=== PATIENT | female | born 1965 | race Two or more races ===

== ENCOUNTER 2023-08-27 12:35 | Inpatient (IN) | payer OTHER ==
[2023-08-27 13:28] VITALS: BMI 30.5
[2023-08-27] MEDS ORDERED: guaiFENesin 600 MG TABLET.ER (FP) PO PRN (20:33)
[2023-08-27] MEDS ORDERED: BENZONATATE 200 MG CAPSULE PO PRN (20:33)
[2023-08-27] MEDS ORDERED: COLLOIDAL OATMEAL 1 BAR EACH TP PRN (20:33)
[2023-08-27] MEDS ORDERED: LOPERAMIDE HCL 2 MG CAPSULE PO PRN (20:33)
[2023-08-27] MEDS ORDERED: BENZOCAINE/MENTHOL (CHLORASEPTIC ) LOZENGE MM PRN (20:33)
[2023-08-27] MEDS ORDERED: MAG HYDROX/AL HYDROX/SIMETH 30 ML UNIT-DOSE CUP PO PRN (20:33)
[2023-08-27] MEDS ORDERED: IBUPROFEN 400 MG TABLET (FP) PO PRN (20:33)
[2023-08-27] MEDS ORDERED: ACETAMINOPHEN 325 MG TABLET (FP) PO PRN (20:33)
[2023-08-27] MEDS ORDERED: P-EPHED 60MG/TRIPROLIDI 2.5MG TABLET PO PRN (20:33)
[2023-08-27] MEDS ORDERED: POLYETHYLENE GLYCOL (HEALTHYLAX) 3350 17 GM PACKET PO PRN (20:33)
[2023-08-27] MEDS ORDERED: IBUPROFEN 600 MG TABLET (FP) PO PRN (20:33)
[2023-08-27] MEDS ORDERED: NICOTINE POLACRILEX 2 MG GUM BUC PRN (20:33)
[2023-08-27] MEDS ORDERED: MELATONIN 5 MG TABLETS PO SCH (22:00)
[2023-08-27] MEDS: THIAMINE HCL 100 MG TABLET (FP) PO SCH (23:42)
[2023-08-27] MEDS: MELATONIN 5 MG TABLETS PO SCH (23:45)
[2023-08-28] MEDS: PRENATAL VITAMINS W/ FOLIC ACID TABLET (FP) PO SCH (09:46)
[2023-08-28 10:23] LABS: HEMOGLOBIN 12.1 GM/dL (10.7-15.3); MCH 24.4 pg (25.7-33.7); MCHC 31.8 g/dl (32.0-36.0); MEAN CELL VOLUME 76.5 fl (80-96); PLATELET COUNT 221 10^3/uL (134-434); RBC 4.97 M/mm3 (3.60-5.2); RDW 14.8 % (11.6-15.6); WHITE BLOOD COUNT 5.5 K/mm3 (4.0-10.0)
[2023-08-28 10:29] LABS: POTASSIUM 4.3 mmol/L (3.5-5.1)
[2023-08-28 10:37] LABS: BLOOD UREA NITROGEN 15.8 mg/dL (7-18); CALCIUM 8.7 mg/dL (8.5-10.1)
[2023-08-28 10:38] LABS: ALBUMIN 3.2 g/dl (3.4-5.0)
[2023-08-28 10:40] LABS: CREATININE 0.8 mg/dL (0.55-1.3)
[2023-08-28 10:41] LABS: BILIRUBIN,TOTAL 0.6 mg/dL (0.2-1)
[2023-08-28 10:42] LABS: TOT PROT 6.1 g/dl (6.4-8.2)
[2023-08-28] MEDS: BUPRENORPHINE/NALOXONE 8 MG/2 MG FILM PACKET SL SCH ×2 (13:04→21:17)
[2023-08-28] MEDS ORDERED: PATIENT'S OWN MEDICATION (NON-FORMULARY) (Buprenorphine/Naloxone 1 EACH Film) SL SCH (14:00)
[2023-08-28] MEDS ORDERED: ESCITALOPRAM OXALATE 20 MG TABLET PO ONE (14:09)
[2023-08-28] MEDS ORDERED: VENLAFAXINE HCL 75 MG E.R. CAPSULES PO ONE (14:09)
[2023-08-28] MEDS ORDERED: clonazePAM 0.5 MG ODT TABLETS SL ONE (14:21)
[2023-08-28] MEDS: GABAPENTIN 400 MG CAPSULE PO SCH ×2 (15:01→21:17)
[2023-08-28] MEDS: THIAMINE HCL 100 MG TABLET (FP) PO SCH (21:17)
[2023-08-28] MEDS: ATORVASTATIN CA 40 MG TABLET (FP) PO SCH (21:17)
[2023-08-28] MEDS: clonazePAM 0.5 MG ODT TABLETS SL SCH (21:17)
[2023-08-28] MEDS: MELATONIN 5 MG TABLETS PO SCH (21:20)
[2023-08-28] MEDS ORDERED: SENNOSIDES 8.6MG TABLET (FP) PO SCH (22:00)
[2023-08-28] MEDS: SENNOSIDES 8.6MG TABLET (FP) PO SCH (22:19)
[2023-08-29] MEDS: BUPRENORPHINE/NALOXONE 8 MG/2 MG FILM PACKET SL SCH ×3 (06:45→21:13)
[2023-08-29] MEDS: GABAPENTIN 400 MG CAPSULE PO SCH ×3 (06:45→21:06)
[2023-08-29 09:06] LABS: EPI CELLS 35 /uL (0-25.1); HYALINE CASTS 1 /uL (0-3.1); PH,URINE 6.5 (5.0-8.0); URINE APPEARANCE CLEAR; URINE BACTERIA 1552 /uL (0-1359); URINE BILIRUBIN NEGATIVE (NEGATIVE); URINE COLOR YELLOW; URINE GLUCOSE (UA) NEGATIVE (NEGATIVE); URINE KETONE NEGATIVE (NEGATIVE); URINE LEUK ESTERASE TRACE (NEGATIVE); URINE NITRITE NEGATIVE (NEGATIVE); URINE PROTEIN NEGATIVE (NEGATIVE); URINE RBC 11 /uL (0-23.9); URINE UROBILINOGEN 0.2 mg/dL (0.2-1.0); URINE WBC 22 /uL (0-25.8)
[2023-08-29] MEDS: ESCITALOPRAM OXALATE 20 MG TABLET PO SCH (10:19)
[2023-08-29] MEDS: PRENATAL VITAMINS W/ FOLIC ACID TABLET (FP) PO SCH (10:19)
[2023-08-29] MEDS: clonazePAM 0.5 MG ODT TABLETS SL SCH ×2 (10:20→21:12)
[2023-08-29] MEDS: VENLAFAXINE HCL 75 MG E.R. CAPSULES PO SCH (10:39)
[2023-08-29] MEDS: ATORVASTATIN CA 40 MG TABLET (FP) PO SCH (21:05)
[2023-08-29] MEDS: SENNOSIDES 8.6MG TABLET (FP) PO SCH (21:05)
[2023-08-29] MEDS: THIAMINE HCL 100 MG TABLET (FP) PO SCH (21:06)
[2023-08-29] MEDS: MELATONIN 5 MG TABLETS PO SCH (21:07)
[2023-08-30] MEDS: GABAPENTIN 400 MG CAPSULE PO SCH ×3 (06:17→21:17)
[2023-08-30] MEDS: BUPRENORPHINE/NALOXONE 8 MG/2 MG FILM PACKET SL SCH ×3 (06:18→21:17)
[2023-08-30] MEDS: ESCITALOPRAM OXALATE 20 MG TABLET PO SCH (10:13)
[2023-08-30] MEDS: MAGNESIUM HYDROX 2400MG/30ML ORAL SUSPENSION 30 ML CUP PO PRN (10:13)
[2023-08-30] MEDS: clonazePAM 0.5 MG ODT TABLETS SL SCH ×2 (10:16→21:17)
[2023-08-30] MEDS: VENLAFAXINE HCL 75 MG E.R. CAPSULES PO SCH (10:17)
[2023-08-30] MEDS: PRENATAL VITAMINS W/ FOLIC ACID TABLET (FP) PO SCH (10:18)
[2023-08-30] MEDS: SENNOSIDES 8.6MG TABLET (FP) PO SCH (21:17)
[2023-08-30] MEDS: ATORVASTATIN CA 40 MG TABLET (FP) PO SCH (21:17)
[2023-08-30] MEDS: THIAMINE HCL 100 MG TABLET (FP) PO SCH (21:17)
[2023-08-30] MEDS: MELATONIN 5 MG TABLETS PO SCH (21:40)
[2023-08-31] MEDS: GABAPENTIN 400 MG CAPSULE PO SCH ×3 (06:22→21:24)
[2023-08-31] MEDS: BUPRENORPHINE/NALOXONE 8 MG/2 MG FILM PACKET SL SCH ×3 (06:22→21:25)
[2023-08-31] MEDS: MAGNESIUM HYDROX 2400MG/30ML ORAL SUSPENSION 30 ML CUP PO PRN (10:14)
[2023-08-31] MEDS: clonazePAM 0.5 MG ODT TABLETS SL SCH ×2 (10:14→21:24)
[2023-08-31] MEDS: PRENATAL VITAMINS W/ FOLIC ACID TABLET (FP) PO SCH (10:15)
[2023-08-31] MEDS: VENLAFAXINE HCL 75 MG E.R. CAPSULES PO SCH (10:15)
[2023-08-31] MEDS: ESCITALOPRAM OXALATE 20 MG TABLET PO SCH (10:15)
[2023-08-31] MEDS: THIAMINE HCL 100 MG TABLET (FP) PO SCH (21:24)
[2023-08-31] MEDS: ATORVASTATIN CA 40 MG TABLET (FP) PO SCH (21:24)
[2023-08-31] MEDS: SENNOSIDES 8.6MG TABLET (FP) PO SCH (21:24)
[2023-08-31] MEDS: MELATONIN 5 MG TABLETS PO SCH (21:25)
[2023-09-01] MEDS: GABAPENTIN 400 MG CAPSULE PO SCH ×3 (06:13→21:22)
[2023-09-01] MEDS: BUPRENORPHINE/NALOXONE 8 MG/2 MG FILM PACKET SL SCH ×3 (06:13→21:21)
[2023-09-01] MEDS: clonazePAM 0.5 MG ODT TABLETS SL SCH ×2 (10:07→21:22)
[2023-09-01] MEDS: ESCITALOPRAM OXALATE 20 MG TABLET PO SCH (10:07)
[2023-09-01] MEDS: PRENATAL VITAMINS W/ FOLIC ACID TABLET (FP) PO SCH (10:07)
[2023-09-01] MEDS: VENLAFAXINE HCL 75 MG E.R. CAPSULES PO SCH (10:08)
[2023-09-01] MEDS: SENNOSIDES 8.6MG TABLET (FP) PO SCH (21:22)
[2023-09-01] MEDS: ATORVASTATIN CA 40 MG TABLET (FP) PO SCH (21:23)
[2023-09-01] MEDS: THIAMINE HCL 100 MG TABLET (FP) PO SCH (21:23)
[2023-09-01] MEDS: MELATONIN 5 MG TABLETS PO SCH (21:23)
[2023-09-02] MEDS: GABAPENTIN 400 MG CAPSULE PO SCH ×3 (06:25→21:25)
[2023-09-02] MEDS: BUPRENORPHINE/NALOXONE 8 MG/2 MG FILM PACKET SL SCH ×3 (06:25→21:28)
[2023-09-02] MEDS: PRENATAL VITAMINS W/ FOLIC ACID TABLET (FP) PO SCH (09:53)
[2023-09-02] MEDS: ESCITALOPRAM OXALATE 20 MG TABLET PO SCH (09:54)
[2023-09-02] MEDS: clonazePAM 0.5 MG ODT TABLETS SL SCH ×3 (09:55→21:26)
[2023-09-02] MEDS: MAGNESIUM HYDROX 2400MG/30ML ORAL SUSPENSION 30 ML CUP PO PRN (10:10)
[2023-09-02] MEDS: VENLAFAXINE HCL 75 MG E.R. CAPSULES PO SCH (11:33)
[2023-09-02] MEDS: MELATONIN 5 MG TABLETS PO SCH (21:25)
[2023-09-02] MEDS: ATORVASTATIN CA 40 MG TABLET (FP) PO SCH (21:25)
[2023-09-02] MEDS: THIAMINE HCL 100 MG TABLET (FP) PO SCH (21:25)
[2023-09-02] MEDS: SENNOSIDES 8.6MG TABLET (FP) PO SCH (21:26)
[2023-09-03] MEDS: clonazePAM 0.5 MG ODT TABLETS SL SCH ×3 (06:14→21:25)
[2023-09-03] MEDS: GABAPENTIN 400 MG CAPSULE PO SCH ×3 (06:14→21:26)
[2023-09-03] MEDS: BUPRENORPHINE/NALOXONE 8 MG/2 MG FILM PACKET SL SCH ×3 (06:14→21:25)
[2023-09-03] MEDS: PRENATAL VITAMINS W/ FOLIC ACID TABLET (FP) PO SCH (09:58)
[2023-09-03] MEDS: ESCITALOPRAM OXALATE 20 MG TABLET PO SCH (09:59)
[2023-09-03] MEDS: VENLAFAXINE HCL 75 MG E.R. CAPSULES PO SCH (09:59)
[2023-09-03] MEDS: MELATONIN 5 MG TABLETS PO SCH (21:26)
[2023-09-03] MEDS: SENNOSIDES 8.6MG TABLET (FP) PO SCH (21:26)
[2023-09-03] MEDS: THIAMINE HCL 100 MG TABLET (FP) PO SCH (21:26)
[2023-09-03] MEDS: ATORVASTATIN CA 40 MG TABLET (FP) PO SCH (21:27)
[2023-09-04] MEDS: GABAPENTIN 400 MG CAPSULE PO SCH ×3 (05:49→21:33)
[2023-09-04] MEDS: clonazePAM 0.5 MG ODT TABLETS SL SCH ×3 (05:49→21:33)
[2023-09-04] MEDS: BUPRENORPHINE/NALOXONE 8 MG/2 MG FILM PACKET SL SCH ×3 (05:53→21:33)
[2023-09-04] MEDS: VENLAFAXINE HCL 75 MG E.R. CAPSULES PO SCH (09:59)
[2023-09-04] MEDS: PRENATAL VITAMINS W/ FOLIC ACID TABLET (FP) PO SCH (09:59)
[2023-09-04] MEDS: ESCITALOPRAM OXALATE 20 MG TABLET PO SCH (09:59)
[2023-09-04] MEDS: MELATONIN 5 MG TABLETS PO SCH (21:32)
[2023-09-04] MEDS: THIAMINE HCL 100 MG TABLET (FP) PO SCH (21:33)
[2023-09-04] MEDS: SENNOSIDES 8.6MG TABLET (FP) PO SCH (21:33)
[2023-09-04] MEDS: ATORVASTATIN CA 40 MG TABLET (FP) PO SCH (21:33)
[2023-09-05] MEDS: clonazePAM 0.5 MG ODT TABLETS SL SCH ×3 (06:03→21:20)
[2023-09-05] MEDS: GABAPENTIN 400 MG CAPSULE PO SCH ×3 (06:03→21:21)
[2023-09-05] MEDS: BUPRENORPHINE/NALOXONE 8 MG/2 MG FILM PACKET SL SCH ×3 (06:04→21:22)
[2023-09-05] MEDS: PRENATAL VITAMINS W/ FOLIC ACID TABLET (FP) PO SCH (09:43)
[2023-09-05] MEDS: ESCITALOPRAM OXALATE 20 MG TABLET PO SCH (09:43)
[2023-09-05] MEDS: VENLAFAXINE HCL 75 MG E.R. CAPSULES PO SCH (09:43)
[2023-09-05] MEDS: ATORVASTATIN CA 40 MG TABLET (FP) PO SCH (21:21)
[2023-09-05] MEDS: THIAMINE HCL 100 MG TABLET (FP) PO SCH (21:22)
[2023-09-05] MEDS: SENNOSIDES 8.6MG TABLET (FP) PO SCH (21:22)
[2023-09-05] MEDS: MELATONIN 5 MG TABLETS PO SCH (21:23)
[2023-09-06] MEDS: GABAPENTIN 400 MG CAPSULE PO SCH ×3 (05:52→21:25)
[2023-09-06] MEDS: clonazePAM 0.5 MG ODT TABLETS SL SCH ×3 (05:53→21:25)
[2023-09-06] MEDS: BUPRENORPHINE/NALOXONE 8 MG/2 MG FILM PACKET SL SCH ×3 (05:54→21:25)
[2023-09-06] MEDS: PRENATAL VITAMINS W/ FOLIC ACID TABLET (FP) PO SCH (09:59)
[2023-09-06] MEDS: VENLAFAXINE HCL 75 MG E.R. CAPSULES PO SCH (10:00)
[2023-09-06] MEDS: ESCITALOPRAM OXALATE 20 MG TABLET PO SCH (10:00)
[2023-09-06] MEDS: MELATONIN 5 MG TABLETS PO SCH (21:24)
[2023-09-06] MEDS: SENNOSIDES 8.6MG TABLET (FP) PO SCH (21:25)
[2023-09-06] MEDS: THIAMINE HCL 100 MG TABLET (FP) PO SCH (21:25)
[2023-09-06] MEDS: ATORVASTATIN CA 40 MG TABLET (FP) PO SCH (21:26)
[2023-09-07] MEDS: clonazePAM 0.5 MG ODT TABLETS SL SCH ×3 (06:05→21:45)
[2023-09-07] MEDS: BUPRENORPHINE/NALOXONE 8 MG/2 MG FILM PACKET SL SCH ×3 (06:05→21:45)
[2023-09-07] MEDS: GABAPENTIN 400 MG CAPSULE PO SCH ×3 (06:05→21:45)
[2023-09-07] MEDS: ESCITALOPRAM OXALATE 20 MG TABLET PO SCH (09:52)
[2023-09-07] MEDS: PRENATAL VITAMINS W/ FOLIC ACID TABLET (FP) PO SCH (09:52)
[2023-09-07] MEDS: VENLAFAXINE HCL 75 MG E.R. CAPSULES PO SCH (09:52)
[2023-09-07] MEDS: THIAMINE HCL 100 MG TABLET (FP) PO SCH (21:44)
[2023-09-07] MEDS: MELATONIN 5 MG TABLETS PO SCH (21:44)
[2023-09-07] MEDS: SENNOSIDES 8.6MG TABLET (FP) PO SCH (21:45)
[2023-09-07] MEDS: ATORVASTATIN CA 40 MG TABLET (FP) PO SCH (21:45)
[2023-09-08] MEDS: GABAPENTIN 400 MG CAPSULE PO SCH ×3 (05:57→21:25)
[2023-09-08] MEDS: clonazePAM 0.5 MG ODT TABLETS SL SCH ×3 (05:58→21:26)
[2023-09-08] MEDS: BUPRENORPHINE/NALOXONE 8 MG/2 MG FILM PACKET SL SCH ×3 (05:58→21:26)
[2023-09-08] MEDS: ESCITALOPRAM OXALATE 20 MG TABLET PO SCH (09:30)
[2023-09-08] MEDS: VENLAFAXINE HCL 75 MG E.R. CAPSULES PO SCH (09:30)
[2023-09-08] MEDS: PRENATAL VITAMINS W/ FOLIC ACID TABLET (FP) PO SCH (09:30)
[2023-09-08] MEDS: MELATONIN 5 MG TABLETS PO SCH (21:25)
[2023-09-08] MEDS: THIAMINE HCL 100 MG TABLET (FP) PO SCH (21:25)
[2023-09-08] MEDS: SENNOSIDES 8.6MG TABLET (FP) PO SCH (21:25)
[2023-09-08] MEDS: ATORVASTATIN CA 40 MG TABLET (FP) PO SCH (21:25)
[2023-09-09] MEDS: GABAPENTIN 400 MG CAPSULE PO SCH ×3 (06:05→21:37)
[2023-09-09] MEDS: BUPRENORPHINE/NALOXONE 8 MG/2 MG FILM PACKET SL SCH ×3 (06:05→21:38)
[2023-09-09] MEDS: clonazePAM 0.5 MG ODT TABLETS SL SCH ×3 (06:05→21:37)
[2023-09-09] MEDS: ESCITALOPRAM OXALATE 20 MG TABLET PO SCH (09:34)
[2023-09-09] MEDS: VENLAFAXINE HCL 75 MG E.R. CAPSULES PO SCH (09:34)
[2023-09-09] MEDS: PRENATAL VITAMINS W/ FOLIC ACID TABLET (FP) PO SCH (09:34)
[2023-09-09] MEDS: MELATONIN 5 MG TABLETS PO SCH (21:36)
[2023-09-09] MEDS: ATORVASTATIN CA 40 MG TABLET (FP) PO SCH (21:37)
[2023-09-09] MEDS: THIAMINE HCL 100 MG TABLET (FP) PO SCH (21:38)
[2023-09-09] MEDS: SENNOSIDES 8.6MG TABLET (FP) PO SCH (21:38)
[2023-09-10] MEDS: GABAPENTIN 400 MG CAPSULE PO SCH (05:53)
[2023-09-10] MEDS: clonazePAM 0.5 MG ODT TABLETS SL SCH (05:54)
[2023-09-10] MEDS: BUPRENORPHINE/NALOXONE 8 MG/2 MG FILM PACKET SL SCH (05:55)
[2023-09-10 07:00] VITALS: RESP 18; TEMP 97.3
[2023-09-10 09:32] VITALS: BP 120/66; PULSE 74
[2023-09-10] MEDS: ESCITALOPRAM OXALATE 20 MG TABLET PO SCH (09:35)
[2023-09-10] MEDS: VENLAFAXINE HCL 75 MG E.R. CAPSULES PO SCH (09:35)
[2023-09-10] MEDS: PRENATAL VITAMINS W/ FOLIC ACID TABLET (FP) PO SCH (09:35)
== END 2023-09-10 10:42 | disposition home or self-care (01) | DRG 772 ==
LOC: YASAS 12:35 → Y5N 23:00
PROVIDERS: ADMIT Allergy & Immunology; ATTEND Psychiatry & Neurology Pain Medicine
PROC: HZ42ZZZ Group Counseling for Substance Abuse Treatment, Cognitive-Behavioral (ICD-10-PCS; principal; 2023-08-27)
DX: F11.20 Opioid dependence, uncomplicated (principal); F14.20 Cocaine dependence, uncomplicated; F13.20 Sedative, hypnotic or anxiolytic dependence, uncomplicated; F17.210 Nicotine dependence, cigarettes, uncomplicated; F41.9 Anxiety disorder, unspecified; I10 Essential (primary) hypertension
CPT/HCPCS: 36415; 71045-TC-FY; 80053; 81003; 85027; 86780; 87635